=== PATIENT | female | born 1960 | race Caucasian/White ===

== ENCOUNTER → 2020-11-24 | Outpatient (CLI) | payer OTHER ==
[2020-11-24 15:02] LABS: ALT 28 U/L (4-34); AST 34 U/L (14-36); African American GFR (CKD) >90 (>60 ml/min/1.73 sqM); Albumin 4.4 g/dL (3.5-5.0); Alkaline Phosphatase 78 U/L (38-126); Anion Gap 5 mmol/L; Blood Urea Nitrogen 9 mg/dL (7-17); Calcium 10.2 mg/dL (8.4-10.2); Carbon Dioxide 34 mmol/L (22-30); Chloride 102 mmol/L (98-107); Glucose 100 mg/dL (74-99); Non-African American GFR(CKD) 87 (>60 ml/min/1.73 sqM); Sodium 141 mmol/L (137-145); Total Bilirubin 0.3 mg/dL (0.2-1.3)
[2020-11-24 15:03] LABS: HCT 41.7 % (34.0-46.0); HGB 14.2 gm/dL (11.4-16.0); MCH 33.9 pg (25.0-35.0); MCHC 34.1 g/dL (31.0-37.0); MCV 99.4 fL (80.0-100.0); Platelet Count 303 k/uL (150-450); RBC 4.19 m/uL (3.80-5.40); RDW 12.9 % (11.5-15.5); WBC 6.6 k/uL (3.8-10.6)
[2020-11-24 15:08] LABS: INR 0.9 (<1.2); Partial Thromboplastin Time 21.9 sec (22.0-30.0)
[2020-11-24 15:44] LABS: Appearance,Urine Clear (Clear); Bilirubin,Urine Negative (Negative); Blood,Urine Negative (Negative); Color,Urine Colorless; Glucose,Urine (UA) Negative (Negative); Ketones,Urine Negative (Negative); Leukocyte Esterase,Urine Small (Negative); Mucus,Urine Rare /hpf; Nitrite,Urine Negative (Negative); Protein,Urine Negative (Negative); RBC,Urine 2 /hpf (0-5); Specific Gravity,Urine 1.003 (1.001-1.035); Squamous Epithelial Cell,Urine 2 /hpf (0-4); Urobilinogen,Urine <2.0 mg/dL (<2.0); WBC,Urine 4 /hpf (0-5)
== END | disposition home or self-care (01) ==
LOC: LABPAT 14:09
PROVIDERS: ATTEND Orthopaedic Surgery
DX: Z01.812 Encounter for preprocedural laboratory examination (principal)
CPT/HCPCS: 36415; 80053; 81001; 85027; 85610; 85730; 87070

== ENCOUNTER 2020-12-06 08:02 | Observation (INO) | payer OTHER ==
[2020-12-02 09:46] VITALS: BMI 26.6
[~2020-12-06 08:02] MED LIST: ACETAMINOPHEN TAB 500 MG TAB PO PRN; DEXAMETHASONE SOD PHOSPHATE 4 MG/ML 1 ML VIAL IV ONE; GABAPENTIN 300 MG CAP PO PRN; HYDROcodone/APAP 7.5-325MG 1 EACH TAB PO PRN; HYDROmorphone 0.2 MG/1 ML SYRINGE IVP PRN; HYDROmorphone 1 MG/ML 1 ML SYRINGE IVP PRN; LIDOCAINE 1% (10MG/ML) FOR IV START INTRADERMA PRN; MAGNESIUM HYDROXIDE 2,400 MG/10 ML CUP PO PRN; MELOXICAM 7.5 MG TAB PO PRN; MIDAZOLAM 2 MG/2 ML VIAL IV PRN; NALOXONE 0.4 MG/ML 1 ML VIAL IV PRN; ONDANSETRON 4 MG/2 ML VIAL IVP ONE; ONDANSETRON 4 MG/2 ML VIAL IVP PRN; ROPIVACAINE/EPI/CLONIDINE/KET 50 ML SYRINGE MISCELLANE PRN; TRANEXAMIC ACID 1,000 MG in SODIUM CHLORIDE 0.9% 100 ML IVPB PRN; diazePAM 5 MG TAB PO PRN; hydrOXYzine pamoate 25 MG CAP PO PRN
[2020-12-06] MEDS: LACTATED RINGERS 1,000 ML IV SCH (08:50)
[2020-12-06] MEDS ORDERED: PROPOFOL 10 MG/ML 20 ML VIAL IV ONE (08:58)
[2020-12-06] MEDS ORDERED: PHENYLEPHRINE-0.9% NACL SYG 1,000 MCG/10 ML SYRINGE ONE (08:58)
[2020-12-06] MEDS ORDERED: MIDAZOLAM 2 MG/2 ML VIAL ONE (08:58)
[2020-12-06] MEDS ORDERED: fentaNYL (PF) 50 MCG/ML 2 ML AMP ONE (08:58)
[2020-12-06] MEDS ORDERED: TRANEXAMIC ACID 1,000 MG/10 ML VIAL ONE (08:58)
[2020-12-06] MEDS ORDERED: HEPARIN SODIUM,PORCINE 10,000 UNIT/ML 1 ML VIAL ONE (08:58)
[2020-12-06] MEDS ORDERED: SODIUM CHLORIDE 0.9% 100 ML BAG ONE (08:58)
[2020-12-06] MEDS ORDERED: SODIUM CHLORIDE 0.9% IRRIG 1,000 ML BTL IRRIGATION ONE (08:58)
[2020-12-06] MEDS ORDERED: LACTATED RINGERS 1,000 ML IV ONE (10:55)
--- NOTE | 2020-12-06 11:11 | FL ---
EXAMINATION TYPE: FL guidance operating room, XR Hip Limited LT DATE OF EXAM: 12/06/2020 CLINICAL HISTORY: Left hip pain and osteoarthritis. TECHNIQUE: Fluoroscopy. Limited intraoperative views left hip. COMPARISON: None. FINDINGS: Fluoroscopic guidance was provided during left hip replacement procedure performed by Dr. Ragland. A total of estimated 10 seconds of fluoroscopic time was utilized during the procedure and four spot intraoperative images are acquired. Intraoperative images obtained show metallic hardware from total hip replacement satisfactory in posi tion on frontal projection. IMPRESSION: As Above.
[2020-12-06] MEDS: HYDROmorphone 0.5 MG/0.5 ML SYRINGE IVP PRN ×3 (12:16→19:52)
--- NOTE | 2020-12-06 14:21 | XR ---
EXAMINATION TYPE: XR Hip Limited LT, one view DATE OF EXAM: 12/06/2020 Comparison: None Clinical History: 60-year-old female Status post hip surgery, assess surgical alignment Findings: Image shows left hip total arthroplasty. Acetabular cup and femoral stem components of the prosthesis appear well seated without periprosthetic fracture. Alignment grossly anatomic. Scattered soft tissu e air related to recent operation. Impression: No acute cardiopulmonary process.
[2020-12-06] MEDS: HYDROcodone/APAP 7.5-325MG 1 EACH TAB PO PRN ×2 (15:32→22:26)
--- NOTE | 2020-12-06 16:04 | P.OP ---
Date of Procedure: 12/06/20 Preoperative Diagnosis: 1. Severe osteoarthritis left hip 2. Status post intramedullary nailing left hip with retained hardware Postoperative Diagnosis: 1. Severe osteoarthritis left hip 2 status post intramedullary nailing of the left hip with retained hardware Procedure(s) Performed: 1. Removal of hardware left hip 2. Left total hip arthroplasty with a direct anterior approach Implants: [employer] Polarstem standard size 4 [employer] R3, 3 hole hemispherical acetabular shell, 52 mm [employer] Reflection 6.5 mm cancellus screw, 25 mm 2 [employer] OR30 40mm ID, 52 mm OD Oxinium dual mobility liner [employer] OR30 22 mm ID, 40 mm OD dual mobility insert, XLPE [employer] Oxinium femoral head 22 mm, +0 All components were press-fit. The articulation is Oxinium on polyethylene. Anesthesia: spinal Surgeon: Miller Ragland Accounts Receivable Accountant #1: Natalia Crews Estimated Blood Loss (ml): 200 (60 mL returned with Cell Saver) Pathology: other (Femoral head) Condition: stable Disposition: PACU Indications for Procedure: After failure of conservative treatment we discussed the surgical and nonsurgical treatment options at length. Patient wishes to proceed with removal of hardware and a total hip arthroplasty with a direct anterior approach. Complications specific to this procedure were discussed at length, including but not limited to infection, leg length discrepancy, dislocation, nerve injury, and fracture. Covid-19 was also discussed at length with the patient, and they are aware of the current policies and procedures. The patient was given the option of delaying surgery, but they elect to proceed knowing these risks. Patient is aware of all these complications and informed consent was obtained Operative Findings: The operative findings are consistent with severe osteoarthritis left hip with retained hardware Description of Procedure: Patient was seen and evaluated in the preoperative area and the consent was reviewed. The operative site was marked with a skin marker. The patient was then brought to the operating room and given preoperative antibiotics intravenously. 1 g of Tranexamic acid was also given intravenously. A spinal anesthetic was administered by the anesthesia department. The patient was then placed on the [place] table with the bony prominences well-padded. The hip area was then prepped with a ChloraPrep solution and draped in the usual sterile fashion. A universal timeout was then performed, which confirmed the patient's name, surgical site, ALLERGIES, and procedure being performed on the consent. Next the incision site was located at 1 cm distal to the anterior superior iliac spine and 1 cm laterally. The skin and subcutaneous tissues were sharply incised. Incision was carefully dissected down to the fascia overlying the tensor fascia christie muscle. This fascia was then incised in line with the incision. Care was taken to stay laterally in order to avoid injuring the lateral femoral cutaneous nerve. Next, using blunt finger dissection, the tensor fascia christie muscle was dissected off its investing fascia. The muscle was then carefully retracted laterally with a cobra retractor over the lateral neck of the femur. Next, the circumflex vessels were identified and cauterized using the AquRolltechtis device. The anterior hip capsule was then exposed. The capsule was then opened and an inverted T fashion. Cobra retractors were then placed intracapsularly. The retractors were maintained intracapsular throughout the procedure. The proximal femur was then visualized. A small amount of traction was placed on the leg. The intramedullary hip screw was then removed by first removing the lag screw then followed by the macie. These were removed without incident. The femoral neck was then osteotomized appropriate level above the lesser trochanter. A small wedge of bone was then removed from the remaining femoral head. Next, using a corkscrew the femoral head was removed from the acetabulum. On gross visual inspection, the femoral head had complete loss of articular cartilage and multiple periarticular osteophytes. The femoral head was then measured. Attention was then turned to the acetabulum. The acetabulum was exposed and any remaining labrum was excised. Sequential reaming of the acetabulum was performed using fluoroscopic guidance until there was a good bed of bleeding cancellus bone. When the appropriate size was reached, a trial was then placed. The position and fit of the trial was checked with fluoroscopy. The trial was then removed. Then, using fluoroscopic guidance, the final implant was impacted at 20 of anteversion and 40 of abduction, and fully seated in the acetabulum. 2 screws were then placed in the acetabulum. Again fluoroscopy was used to check position of the screws. Next, the liner was then impacted, with a 20 elevated liner located in the anterior superior quadrant. Component locking was confirmed. Attention was then directed to the femur. With the aid of the [place] table, the femur was externally rotated to approximately 130, extended, and adducted under the opposite leg. A side hook was then placed under the proximal femur, and the side hook elevator was used to elevate the proximal femur while releasing the capsule. Retractors were then placed. A capsular release was performed, as w ell as a release of the conjoined tendon, which afforded excellent visualization of the proximal femur. Next, a box osteotome was used to lateralize the proximal femur. A merchandise pickup/receiving associate was then used to locate the femoral canal. Sequential broaching was then performed with appropriate size which afforded excellent fixation in the proximal femur. A trial was then placed with appropriate head and neck, and the hip was gently reduced with the aid of the [place] table. Fluoroscopy was then used to check position of the components, as well as to ensure equal leg lengths. The hip was then gently dislocated and the trials were then removed. Final implants were then impacted and the hip was again reduced. Final fluoroscopic x-rays confirmed that the components were in anatomic position, as well as equal leg lengths. The hip was also taken through range of motion, and found to be stable. The hip was then copiously irrigated with antibiotic solution with pulsatile lavage. The hip was then irrigated with Irrisept solution. The soft tissues were then injected with a ropivacaine solution, which consisted of 246.25 mg of ropivacaine, 0.5 mg of epinephrine, 30 mg of Toradol, 80 g of clonidine, and 48.45 mL of sterile water, for a total of 100 mL of fluid injected. A second dose of 1 g of Tranexamic acid was also given intravenously. Any blood collected by Cell Saver was then returned to the patient at this time. The fascia was then closed with 2-0 strata fix suture. The subcutaneous tissue was closed with 3-0 Vicryl. The subcuticular tissue was closed with 3-0 strata fix suture. The skin was then closed with Exofin skin glue. After the glue and dried, and Optifoam silver impregnated dressing was applied. The patient was then transferred to the recovery room in stable condition. The television production assistant YANA Machado was required due to the complexity of surgery, and the need for skilled automotive service assistant for positioning, draping, exposure, retraction, and closure of the wound.
[2020-12-06] MEDS: SODIUM CHLORIDE 0.9% 1,000 ML IV SCH (17:04)
[2020-12-06] MEDS ORDERED: SENNOSIDES-DOCUSATE SODIUM 1 EACH TAB PO SCH (21:00)
[2020-12-06] MEDS: ASPIRIN 325 MG TAB PO SCH (22:26)
[2020-12-07] MEDS: SODIUM CHLORIDE 0.9% 1,000 ML IV SCH (01:06)
[2020-12-07] MEDS: HYDROmorphone 0.5 MG/0.5 ML SYRINGE IVP PRN ×2 (01:07→08:39)
[2020-12-07] MEDS: LACTATED RINGERS 1,000 ML IV SCH (05:03)
[2020-12-07] MEDS: HYDROcodone/APAP 7.5-325MG 1 EACH TAB PO PRN ×2 (05:11→10:49)
[2020-12-07 07:54] VITALS: BP 134/76; PULSE 69; RESP 17; TEMP 98
[2020-12-07] MEDS ORDERED: METOPROLOL SUCCINATE (ER) 25 MG TAB.ER.24H PO SCH (09:00)
[2020-12-07] MEDS ORDERED: MELOXICAM 7.5 MG TAB PO SCH (09:00)
[2020-12-07] MEDS ORDERED: FENOFIBRATE 54 MG TAB PO SCH (09:00)
[2020-12-07] MEDS ORDERED: ISOSORBIDE MONONITRATE ER 30 MG TAB.ER.24H PO SCH (09:00)
[2020-12-07] MEDS: ASPIRIN 325 MG TAB PO SCH (09:21)
[2020-12-07 10:24] LABS: Basophils # (A) 0.02 X 10*3/uL (0.00-0.10); Basophils % (A) 0.2 %; Eosinophils # (A) 0.02 X 10*3/uL (0.04-0.35); Eosinophils % (A) 0.2 %; HCT 35.3 % (37.2-46.3); HGB 11.5 g/dL (12.0-15.0); Lymphocytes # (A) 1.41 X 10*3/uL (0.90-5.00); Lymphocytes % (A) 17.2 %; MCH 32.4 pg (27.0-32.0); MCHC 32.6 g/dL (32.0-37.0); MCV 99.4 fL (80.0-97.0); Mean Platelet Volume 10.6 fL (9.5-12.2); Monocytes # (A) 0.69 X 10*3/uL (0.20-1.00); Monocytes % (A) 8.4 %; Neutrophils # (A) 6.04 X 10*3/uL (1.80-7.70); Neutrophils % (A) 73.6 %; Platelet Count 261 X 10*3/uL (140-440); RBC 3.55 X 10*6/uL (4.10-5.20); RDW 12.9 % (11.5-14.5); WBC 8.21 X 10*3/uL (4.50-10.00)
--- NOTE | 2020-12-07 10:54 | P.DS ---
Providers Date of admission: 12/07/20 03:36 Expected date of discharge: 12/07/20 Attending physician: Miller Ragland Consults: 12/06/20 14:50 Consult Physician Routine Consulting Provider: Jeffrey Singh Consult Reason/Comments: medical management Do you want consulting provider notified?: Yes Primary care physician: Wily Kemp DO - Discharge Diagnosis(es) (1) Status post hardware removal Current Visit: Yes Status: Acute (2) Status post total hip replacement, left Current Visit: Yes Status: Acute Hospital Course: This is 60-year-old female with known history of degenerative arthritis of the left hip as well as hip fracture in the past with surgical fixation. The patient presents for evaluation. After discussion and consideration patient elects to proceed with removal of hardware and total left hip arthroplasty. The patient is seen preoperatively by her primary care physician and cleared for surgery. Patient is admitted to [facility] on 12/06/2020 for removal of hardware and total hip arthroplasty. The procedure is performed without complication or sequelae. The patient is doing well postoperatively. Labs and vital signs are stable on day of discharge. On day of discharge patient's hip incision is healing well. There is minimal erythema. There is no drainage noted at this time. There is minimal soft tissue swelling to the hip and thigh. Patient has full foot and ankle motion w ithout difficulty or pain. Neurovascular status to the left lower extremity is intact. Patient is discharged to home in good condition. Please see med rec for accurate list of home medications. Patient Condition at Discharge: Good Plan - Discharge Summary Discharge Rx Participant: No New Discharge Prescriptions: New Aspirin 325 mg PO BID #60 tab Celecoxib [CeleBREX] 200 mg PO DAILY 5 Days #5 capsule HYDROcodone/APAP 7.5-325MG [[place] 7.5-325] 1 - 2 tab PO Q6H PRN #32 tab PRN Reason: Pain Ondansetron Odt [Zofran Odt] 1 tab PO Q8HR PRN #10 tab PRN Reason: Nausea Sennosides [Senokot] 2 tab PO DAILY PRN #60 tablet PRN Reason: Constipation No Action Lisinopril [Prinivil] 5 mg PO QAM Gabapentin [Neurontin] 200 mg PO TID Gabapentin [Neurontin] 800 mg PO TID Atorvastatin [Lipitor] 80 mg PO HS Aspirin [Adult Low Dose Aspirin EC] 81 mg PO DAILY Amitriptyline HCl 100 mg PO HS Metoprolol Succinate (ER) [Toprol Xl] 25 mg PO DAILY Isosorbide Mononitrate [Isosorbide Mononitrate ER] 30 mg PO DAILY Fenofibrate Nanocrystallized [Fenofibrate] 48 mg PO DAILY Discharge Medication List Amitriptyline HCl 100 mg PO HS 03/12/16 [History] Aspirin [Adult Low Dose Aspirin EC] 81 mg PO DAILY 03/12/16 [History] Atorvastatin [Lipitor] 80 mg PO HS 03/12/16 [History] Gabapentin [Neurontin] 200 mg PO TID 03/12/16 [History] Gabapentin [Neurontin] 800 mg PO TID 03/12/16 [History] Lisinopril [Prinivil] 5 mg PO QAM 03/12/16 [History] Fenofibrate Nanocrystallized [Fenofibrate] 48 mg PO DAILY 12/02/20 [History] Isosorbide Mononitrate [Isosorbide Mononitrate ER] 30 mg PO DAILY 12/02/20 [History] Metoprolol Succinate (ER) [Toprol Xl] 25 mg PO DAILY 12/02/20 [History] Aspirin 325 mg PO BID #60 tab 12/06/20 [Rx] Celecoxib [CeleBREX] 200 mg PO DAILY 5 Days #5 capsule 12/06/20 [Rx] HYDROcodone/APAP 7.5-325MG [[place] 7.5-325] 1 - 2 tab PO Q6H PRN #32 tab 12/06/20 [Rx] Ondansetron Odt [Zofran Odt] 1 tab PO Q8HR PRN #10 tab 12/06/20 [Rx] Sennosides [Senokot] 2 tab PO DAILY PRN #60 tablet 12/06/20 [Rx] Follow up Appointment(s)/Referral(s): [facility], [NON-STAFF] - 1-2 Days Miller Ragland DO [Doctor of Osteopathic Medicine] - 2 Weeks Activity/Diet/Wound Care/Special Instructions: Weightbearing as tolerated with walker. Leave dressing intact. Dressing may be removed by home care nurse or by patient in 7 days. Then change dressing twice daily until follow up. May shower with initial dressing intact and after removal. If dressing become saturated, please remove. Please take aspirin 325mg twice daily for 30 days to prevent blood clots. Recommend use of compression stockings daily until follow up to help prevent swelling and blood clots. May remove at night before sleeping. Please follow-up with [facility] in 2 weeks and call with any questions or concerns, .
[2020-12-07] MEDS ORDERED: AMITRIPTYLINE HCL 50 MG TAB PO SCH (21:00)
[2020-12-07] MEDS ORDERED: ATORVASTATIN 80 MG TAB PO SCH (21:00)
== END 2020-12-07 12:00 | disposition home health service (06) ==
LOC: OR 08:02 → 4SSUR 14:41 → OR 12-07 03:36
PROVIDERS: ADMIT Orthopaedic Surgery; ATTEND Orthopaedic Surgery
DX: M16.12 Unilateral primary osteoarthritis, left hip (principal); I10 Essential (primary) hypertension; Z68.28 Body mass index [BMI] 28.0-28.9, adult; E66.9 Obesity, unspecified; E78.5 Hyperlipidemia, unspecified; Z87.891 Personal history of nicotine dependence; G62.9 Polyneuropathy, unspecified; L98.9 Disorder of the skin and subcutaneous tissue, unspecified; Z79.82 Long term (current) use of aspirin; Z79.899 Other long term (current) drug therapy; Z79.891 Long term (current) use of opiate analgesic; Z87.81 Personal history of (healed) traumatic fracture
CPT/HCPCS: 27130; 97161; 97535; 97165; 86891; 86900; 86901; 85025; 86850; 88300; 73501; G0378; P9022; C1776; J2250; J1644; J1100; J0690 ×2; J2405; J3010; J2370; J2704; J1170 ×2